=== PATIENT | male | born 1945 | race Caucasian/White ===

== ENCOUNTER 2023-05-26 14:33 | Day surgery (SDC) | payer OTHER ==
[~2023-05-26] VITALS: Ht 177.8 cm; Wt 65.3 kg
[~2023-05-26 14:33] MED LIST: HYDROCODONE-AC1 EAC7 PO; LATA.005SO; TAMS.4ER PO; TIMO.25OPS
--- NOTE | 2023-05-26 15:13 | NUR ---
05/26/23 1513 Sara BiggsARACAINE AND PLEHAFSA PLACED PER ORDERS. PROPARACAINE AT 1509 AND PLEDGETT AT 1510.
== END 2023-05-26 16:40 | disposition home or self-care (01) ==
LOC: ORSCSDS 14:33
PROVIDERS: Ophthalmology
PROC: 08RK3JZ Replacement of Left Lens with Synthetic Substitute, Percutaneous Approach (ICD-10-PCS; principal; 2023-05-26 16:00)
PROC: 08933ZZ Drainage of Left Anterior Chamber, Percutaneous Approach (ICD-10-PCS; principal; 2023-05-26 16:00)
DX: H25.13 Age-related nuclear cataract, bilateral (principal); H40.1122 Primary open-angle glaucoma, left eye, moderate stage; H52.202 Unspecified astigmatism, left eye; Z79.899 Other long term (current) drug therapy
CPT/HCPCS: J2001; J2250; J3010; J3301; J7040; V2632

== ENCOUNTER 2023-06-03 11:50 | Day surgery (SDC) | payer OTHER ==
[~2023-06-03] VITALS: Ht 177.8 cm; Wt 64.6 kg
--- NOTE | 2023-06-03 12:15 | NUR ---
06/03/23 1215 Noris Quintana PROPARACAINE PLACED IN RIGHT EYE AT 1207. PLEDGET PLACED IN RIGHT EYE AT 1208.
--- NOTE | 2023-06-03 13:33 | NUR ---
06/03/23 1333 Fredy Belle IV REMOVED INTACT. SITE WNL.
== END 2023-06-03 13:31 | disposition home or self-care (01) ==
LOC: ORSCSDS 11:50
PROVIDERS: Ophthalmology
PROC: 08RJ3JZ Replacement of Right Lens with Synthetic Substitute, Percutaneous Approach (ICD-10-PCS; principal; 2023-06-03 13:00)
DX: H25.11 Age-related nuclear cataract, right eye (principal); Z96.1 Presence of intraocular lens; H40.1122 Primary open-angle glaucoma, left eye, moderate stage; H40.1111 Primary open-angle glaucoma, right eye, mild stage; Z79.899 Other long term (current) drug therapy
CPT/HCPCS: J2250; J3010; J3301; J7040; V2632